=== PATIENT | male | born 1975 | race Two or more races ===

== ENCOUNTER 2020-09-12 16:31 | Inpatient (IN) | payer OTHER ==
[~2020-09-12] VITALS: Ht 170.2 cm; Wt 74.8 kg
[2020-09-17] MEDS ORDERED: AMOX-CLAV 875-1 EACH PO (13:46)
== END 2020-09-17 16:02 | disposition home or self-care (01) | DRG 392 ==
LOC: ER 16:31 → SEC-K 09-13 07:16 → SURG 09-13 07:16
PROVIDERS: ADMIT Surgery; ATTEND Surgery
PROC: BW2110Z Computerized Tomography (CT Scan) of Abdomen and Pelvis using Low Osmolar Contrast, Unenhanced and Enhanced (ICD-10-PCS; principal; 2020-09-13)
DX: K57.32 Diverticulitis of large intestine without perforation or abscess without bleeding (principal); K62.5 Hemorrhage of anus and rectum; R10.32 Left lower quadrant pain; Z20.822 Contact with and (suspected) exposure to COVID-19

== ENCOUNTER 2020-10-12 06:19 | Inpatient (IN) | payer OTHER ==
[~2020-10-12] VITALS: Ht 170.2 cm; Wt 74.8 kg
[~2020-10-12 06:19] MED LIST: AMOX-CLAV 875-1 EACH PO
--- NOTE | 2020-10-12 06:30 | NUR ---
PATIENT IS RECIEVED SAYING THAT HE'S BEEN HAVING HEADACHES, SEVERE STOMACH ACHES AND STOOL WITH BLOOD SINCE YESTERDAY. PATIENT WAS RECENTLY DAIGNOSED AND TREATED FOR DIVERTICULITIS.
--- NOTE | 2020-10-12 07:41 | NUR ---
PACIENTE EVALUADO POR EL MEDICO EN TURNO, SE LE ORIENTA SOBRE LAS ORDENES MEDICAS. SE CANALIZA Y SE LE ADMINISTRAN LOS MEDICAMENTOS, SE LE STANFORD LAS MUETRAS DE RUPESH Y SE LE REALIZA CT ABDOMINAL, MARTA LAS ORDENES MEDICAS.
--- NOTE | 2020-10-12 16:25 | NUR ---
PTE ALERTA Y ORIENTADO X 3 ESFERAS EN SHRUTHI CON BARANDAS ELEVADAS,EN COMPANIA DE FAMILIAR. NO REFIERE DOLOR AL MOMENTO,AREA DE VENOPUNCION PATENTE Y BEVERLY DE EDEMA CON FLUIDOS DE MANTENIMIENTO,SE LE ADMINISTRAN MEDICAMENTOS MARTA ORDEN MEDICA.PENDIENTE A EVALUACION DE CIRUJANO.
[2020-10-18] MEDS ORDERED: FLAGYL500MG PO (09:02)
[2020-10-18] MEDS ORDERED: CIPRO500 MG PO (09:02)
== END 2020-10-18 13:34 | disposition home or self-care (01) | DRG 392 ==
LOC: ER 06:19 → MEDJ 22:42 → SURH 22:42 → SEC-K 22:42 → MEDJ 10-13 02:06 → SURH 10-13 17:36
PROVIDERS: ADMIT Colon & Rectal Surgery; ATTEND Colon & Rectal Surgery
PROC: BW2110Z Computerized Tomography (CT Scan) of Abdomen and Pelvis using Low Osmolar Contrast, Unenhanced and Enhanced (ICD-10-PCS; principal; 2020-10-12)
DX: K57.32 Diverticulitis of large intestine without perforation or abscess without bleeding (principal); Z20.822 Contact with and (suspected) exposure to COVID-19

== ENCOUNTER 2020-10-21 15:27 | Emergency (ER) | payer OTHER ==
[~2020-10-21] VITALS: Ht 170.2 cm; Wt 71.2 kg
[~2020-10-21 15:27] MED LIST changes: +CIPRO500 MG PO; +FLAGYL500MG PO
[2020-10-21] MEDS ORDERED: XARELTO15 MG PO (22:18)
[2020-10-21] MEDS ORDERED: XARELTO20 MG PO (22:18)
== END 2020-10-21 22:38 | disposition home or self-care (01) ==
LOC: ER 15:27
DX: M79.601 Pain in right arm (principal)

== ENCOUNTER 2021-01-22 15:59 | Inpatient (IN) | payer OTHER ==
[~2021-01-22] VITALS: Ht 170.2 cm; Wt 70.3 kg
[~2021-01-22 15:59] MED LIST changes: +XARELTO15 MG PO; +XARELTO20 MG PO
--- NOTE | 2021-01-22 16:07 | NUR ---
SE RECIBE PTE ALERTA, ORIENTADO EN SABRINA LEEROY ESFERAS. PTE REFIERE DOLOR ABDOMINAL, NO PODER EVACUAR DOMINIQUE Y TENER HISTORIAL DE DIVERTICULITIS. LLEVA LEEROY BARBER APROXIMADAMENTE CON EL DOLOR.
--- NOTE | 2021-01-22 16:36 | NUR ---
PTE ALERTA,ESTABLE Y ORIENTADO.SE EDUCA SOBRE EL TRATAMIENTO QUE SE LE REALIZARA EN EL HOSPITAL Y INDRA REFIERE ENTENDER.SE LE STANFORD MUESTRAS DE RUPESH Y SE LE ADMINISTRA MEDICAMENTOS MARTA ORDEN MEDICA.
--- NOTE | 2021-01-22 23:09 | NUR ---
SE RECIBE PACIENTE DE TURNO ANTERIOR, ALERTA Y ORIENTADO EN TIEMPO LUGAR Y PERSONA. CON VENOPUNCION PATENTE, BEVERLY DE ERITEMA Y EDEMA, RECIBIENDO AL MOMENTO 0.9 NSS 1000ML A 200ML/HR. PACIENTE BEVERLY DE DOLOR AL MOMENTO. SE MANTIENE CON BARANDAS ELEVADAS Y FRENOS AJUSTADOS POR SEGURIDAD. SE MANTIENE EN OBSERVACION POR CAMBIOS EN WADE CONDICION.
--- NOTE | 2021-01-23 07:56 | NUR ---
SE RECIBE PACIENTE MASCULINO ALERTA Y ORIENTADO EL CUAL SE OBSERVA CON CANALIZACION PATENTE, LIMPIA Y SECA CON 0.9 NSS AT 200ML/HR. PACIENTE CONSULTADO EN CON DR ESTELITA CASSIDY. SE MANTIENE PACIENTE ACOMPANADO DE WADE FAMILIAR EN ESPERA DE CONSULTOR.
[2021-01-23] MEDS ORDERED: XARELTO15 MG (12:16)
[2021-01-25] MEDS ORDERED: CIPRO500 MG PO (12:23)
[2021-01-25] MEDS ORDERED: FLAGYL500MG PO (12:23)
== END 2021-01-25 16:36 | disposition home or self-care (01) | DRG 392 ==
LOC: ER 15:59 → SURH 01-23 10:03 → SEC-K 01-23 10:03 → SURG 01-23 19:51 → SURH 01-23 20:00
PROVIDERS: ADMIT Surgery; ATTEND Surgery
PROC: BW2110Z Computerized Tomography (CT Scan) of Abdomen and Pelvis using Low Osmolar Contrast, Unenhanced and Enhanced (ICD-10-PCS; principal; 2021-01-23)
PROC: 3E0F7SF Introduction of Other Gas into Respiratory Tract, Via Natural or Artificial Opening (ICD-10-PCS; 2021-01-23)
DX: K57.32 Diverticulitis of large intestine without perforation or abscess without bleeding (principal); Z20.822 Contact with and (suspected) exposure to COVID-19

== ENCOUNTER 2021-07-29 23:24 | Inpatient (IN) | payer OTHER ==
[~2021-07-29] VITALS: Ht 170.2 cm; Wt 72.6 kg
[~2021-07-29 23:24] MED LIST changes: +XARELTO15 MG
[2021-08-02] MEDS ORDERED: CIPRO500 MG PO (15:10)
[2021-08-02] MEDS ORDERED: METRONIDAZOLE500 MG PO (15:10)
== END 2021-08-03 00:17 | disposition home or self-care (01) | DRG 392 ==
LOC: ER 23:24 → SURH 07-30 09:04
PROVIDERS: ADMIT Surgery; ATTEND Surgery
PROC: BW21ZZZ Computerized Tomography (CT Scan) of Abdomen and Pelvis (ICD-10-PCS; principal; 2021-07-30)
DX: K57.32 Diverticulitis of large intestine without perforation or abscess without bleeding (principal); R10.32 Left lower quadrant pain; Z20.822 Contact with and (suspected) exposure to COVID-19